=== PATIENT | female | born 1985 | race Caucasian/White ===

== ENCOUNTER 2017-04-12 12:52 | Emergency (ER) | payer BC, MEDICAID ==
[~2017-04-12] VITALS: Ht 170.2 cm; Wt 54.5 kg
[2017-04-12 13:13] LABS: GLUCOSE,POINT OF CARE 77 MG/DL (70-110)
[2017-04-12] MEDS ORDERED: SODIUM CHLORIDE 0.9% 1,000 ML IV ONE ×2 (13:15→16:15)
[2017-04-12 14:31] LABS: BASOPHILS % (AUTO) 0.8 % (0.0-2.0); EOSINOPHILS % (AUTO) 0.7 % (1.0-6.0); HEMATOCRIT 42.1 % (36-46); HEMOGLOBIN 14.5 g/dL (12.0-16.0); LYMPHOCYTES # (AUTO) 2.2 K/uL (1.0-4.8); LYMPHOCYTES % (AUTO) 36.5 % (22.0-44.0); MEAN CORPUSCULAR HEMOGLOBIN 33.3 pg (26.0-34.0); MEAN CORPUSCULAR HGB CONC 34.4 G/dL (31.0-37.0); MEAN CORPUSCULAR VOLUME 97 fL (80-100); MONOCYTES # (AUTO) 0.3 K/uL (0.1-1.0); MONOCYTES % (AUTO) 4.9 % (2.0-9.0); NEUTROPHILS # (AUTO) 3.5 K/uL (1.8-7.7); NEUTROPHILS % (AUTO) 57.1 % (40.0-70.0); PLATELET COUNT (AUTO) 289 K/uL (150-450); RED BLOOD CELL COUNT(AUTO) 4.35 MIL/uL (4.00-5.20); RED CELL DISTRIBUTION WIDTH 12.7 % (11.5-14.5); WHITE BLOOD COUNT (AUTO) 6.1 K/uL (4.5-11.0)
[2017-04-12 14:40] LABS: ANION GAP 10 mmol/L (8-16); CALCIUM, TOTAL 8.6 mg/dL (8.8-10.5); CARBON DIOXIDE 27 mmol/L (22-29); CHLORIDE 110 mmol/L (98-107); CREATININE 0.54 mg/dL (0.60-1.30); GLOMERULAR FILTR. RATE CALC > 60 mL/min (>60); POTASSIUM 4.4 mmol/L (3.5-5.1); SODIUM SERUM 147 mmol/L (136-145); UREA NITROGEN, BLOOD 8 mg/dL (7-18)
[2017-04-12 14:46] LABS: ALANINE AMINOTRANSFERASE 30 U/L (12-78); ALBUMIN 3.7 g/dL (3.4-5.0); ASPARTATE AMINOTRANSFERASE 28 U/L (15-37); BILIRUBIN,TOTAL 0.2 mg/dL (0.1-1.0); TOTAL PROTEIN, SERUM 7.1 g/dL (6.4-8.2)
[2017-04-12 14:48] LABS: ACETAMINOPHEN < 2 mcg/mL (10-30)
[2017-04-12 14:49] LABS: SALICYLATE < 2.8 mg/dL (2.8-20.0)
[2017-04-12 18:15] VITALS: BP 113/75
[2017-04-12 18:23] LABS: APPEARANCE,URINE CLEAR (CLEAR); GLUCOSE, URINE (UA) NEGATIVE (NEGATIVE); KETONES,URINE NEGATIVE (NEGATIVE); LEUKOCYTE ESTERASE ,URINE NEGATIVE (NEGATIVE); OCCULT BLOOD,URINE NEGATIVE (NEGATIVE); PROTEIN,URINE NEGATIVE (NEGATIVE)
[2017-04-12 18:46] LABS: ADD UA MICROSCOPIC NO
== END 2017-04-12 18:53 | disposition home or self-care (01) ==
LOC: EMS 12:55
DX: F10.129 Alcohol abuse with intoxication, unspecified (principal)
CPT/HCPCS: 36415; 80053; 80307; 81003; 82962; 84703; 85025; 96360; 96361; 99285; G0480; J7030; G0481

== ENCOUNTER 2017-04-27 19:28 | Inpatient (IN) | payer BC, MEDICAID ==
[~2017-04-27] VITALS: Ht 167.6 cm; Wt 52.2 kg
[2017-04-27 20:04] LABS: BASOPHILS # (AUTO) 0.03 K/uL (0.00-0.20); BASOPHILS % (AUTO) 0.4 % (0.0-2.0); HEMATOCRIT 40.7 % (36-46); HEMOGLOBIN 14.1 g/dL (12.0-16.0); LYMPHOCYTES # (AUTO) 1.7 K/uL (1.0-4.8); LYMPHOCYTES % (AUTO) 18.4 % (22.0-44.0); MEAN CORPUSCULAR HEMOGLOBIN 33.3 pg (26.0-34.0); MEAN CORPUSCULAR HGB CONC 34.6 G/dL (31.0-37.0); MEAN CORPUSCULAR VOLUME 96 fL (80-100); MONOCYTES # (AUTO) 0.7 K/uL (0.1-1.0); MONOCYTES % (AUTO) 7.9 % (2.0-9.0); NEUTROPHILS # (AUTO) 6.7 K/uL (1.8-7.7); NEUTROPHILS % (AUTO) 72.2 % (40.0-70.0); PLATELET COUNT (AUTO) 324 K/uL (150-450); RED BLOOD CELL COUNT(AUTO) 4.23 MIL/uL (4.00-5.20); RED CELL DISTRIBUTION WIDTH 12.4 % (11.5-14.5); WHITE BLOOD COUNT (AUTO) 9.3 K/uL (4.5-11.0)
[2017-04-27 20:26] LABS: ANION GAP 13 mmol/L (8-16); CALCIUM, TOTAL 8.9 mg/dL (8.8-10.5); CARBON DIOXIDE 25 mmol/L (22-29); CHLORIDE 98 mmol/L (98-107); CREATININE 0.86 mg/dL (0.60-1.30); GLOMERULAR FILTR. RATE CALC > 60 mL/min (>60); POTASSIUM 3.2 mmol/L (3.5-5.1); SODIUM SERUM 136 mmol/L (136-145); UREA NITROGEN, BLOOD 12 mg/dL (7-18)
[2017-04-27 20:33] LABS: ALANINE AMINOTRANSFERASE 30 U/L (12-78); ALBUMIN 4.6 g/dL (3.4-5.0); ASPARTATE AMINOTRANSFERASE 33 U/L (15-37); BILIRUBIN,TOTAL 0.7 mg/dL (0.1-1.0); TOTAL PROTEIN, SERUM 8.2 g/dL (6.4-8.2)
[2017-04-28] MEDS ORDERED: ZOLPIDEM TARTRATE 10 MG TABLET PO PRN (01:15)
[2017-04-28] MEDS ORDERED: HALOPERIDOL 5 MG TABLET PO PRN (01:15)
[2017-04-28] MEDS ORDERED: POTASSIUM CHLORIDE 20 MEQ ER TABLET PO ONE (11:00)
[2017-04-28] MEDS ORDERED: INFLUENZA VIRUS VACCINE QVS 2017-18 (3YR+)/PF 60 MCG/0.5 ML SYRINGE IM ONE (11:15)
[2017-04-28 11:28] VITALS: BP 111/62
[2017-04-28 11:32] VITALS: BP 111/62
[2017-04-28] MEDS: LORazepam 2 MG TABLET PO PRN (12:44)
[2017-04-28] MEDS ORDERED: ACETAMINOPHEN 325 MG TABLET PO PRN (14:45)
[2017-04-28] MEDS ORDERED: IBUPROFEN 400 MG TABLET PO PRN (14:45)
[2017-04-29 00:01] VITALS: BP 110/64
[2017-04-29 00:04] VITALS: BP 110/64
[2017-04-29] MEDS: RisperiDONE 2 MG TABLET PO SCH ×2 (08:24→16:07)
[2017-04-29 08:25] VITALS: BP 111/70
[2017-04-29 08:30] VITALS: BP 111/70
[2017-04-29 09:00] LABS: CHOL/HDL RATIO 1.5 (3.9-5.7); POTASSIUM 4.5 mmol/L (3.5-5.1)
[2017-04-29 16:06] VITALS: BP 122/80
[2017-04-29 16:07] VITALS: BP 122/80
[2017-04-30 00:59] VITALS: BP 108/62
[2017-04-30 01:00] VITALS: BP 108/62
[2017-04-30 08:40] VITALS: BP 104/60
[2017-04-30 08:45] VITALS: BP 104/60
[2017-04-30] MEDS: RisperiDONE 2 MG TABLET PO SCH ×2 (09:31→16:09)
[2017-04-30 16:00] VITALS: BP 102/60
[2017-04-30 16:32] VITALS: BP 102/60
[2017-05-01 00:14] VITALS: BP 110/64
[2017-05-01] MEDS: RisperiDONE 2 MG TABLET PO SCH ×2 (08:58→16:05)
[2017-05-01 10:56] VITALS: BP 102/62
[2017-05-01 16:38] VITALS: BP 118/69
[2017-05-02 00:52] VITALS: BP_SYST 100; BP_DIAS 60; BP_DIAS 66
[2017-05-02] MEDS: RisperiDONE 2 MG TABLET PO SCH ×2 (08:49→16:14)
[2017-05-02 09:45] VITALS: BP 107/63
[2017-05-02 13:59] VITALS: BP 112/72
[2017-05-02 16:12] VITALS: BP 106/64
[2017-05-02 16:14] VITALS: BP 106/64
[2017-05-03 00:01] VITALS: BP 101/60
[2017-05-03 08:14] VITALS: BP 109/66
[2017-05-03] MEDS: RisperiDONE 2 MG TABLET PO SCH ×2 (08:33→16:16)
[2017-05-03 10:11] VITALS: BP 109/66
[2017-05-03] MEDS: NICOTINE 7 MG/24 HOUR PATCH TD SCH (13:31)
[2017-05-03 16:36] VITALS: BP 120/73
[2017-05-03 18:23] VITALS: BP 108/60
[2017-05-03] MEDS: LORazepam 2 MG TABLET PO PRN (20:59)
[2017-05-04 00:34] VITALS: BP 102/60
[2017-05-04 09:00] VITALS: BP 118/67
[2017-05-04] MEDS: NICOTINE 7 MG/24 HOUR PATCH TD SCH (09:25)
[2017-05-04] MEDS: RisperiDONE 2 MG TABLET PO SCH ×2 (09:26→16:25)
[2017-05-04] MEDS: LORazepam 2 MG TABLET PO PRN (16:26)
[2017-05-04 16:28] VITALS: BP 120/83
[2017-05-05 00:05] VITALS: BP 105/70
[2017-05-05 04:34] VITALS: BP 125/76
[2017-05-05] MEDS: LORazepam 2 MG TABLET PO PRN ×2 (04:35→16:00)
[2017-05-05] MEDS: NICOTINE 7 MG/24 HOUR PATCH TD SCH (08:46)
[2017-05-05] MEDS: RisperiDONE 2 MG TABLET PO SCH ×2 (08:46→16:00)
[2017-05-05 09:00] VITALS: BP 120/69
[2017-05-05] MEDS ORDERED: RISP2 PO (14:34)
== END 2017-05-05 16:30 | disposition home or self-care (01) | DRG 750 ==
LOC: EMS 19:32 → B2S 04-28 08:30
PROVIDERS: ADMIT Psychiatry & Neurology Psychiatry; ATTEND Psychiatry & Neurology Psychiatry
PROC: 3E0234Z Introduction of Serum, Toxoid and Vaccine into Muscle, Percutaneous Approach (ICD-10-PCS; principal; 2017-04-29)
DX: F20.0 Paranoid schizophrenia (principal); F15.10 Other stimulant abuse, uncomplicated; F10.10 Alcohol abuse, uncomplicated; E87.6 Hypokalemia; R41.0 Disorientation, unspecified; R45.86 Emotional lability; Z23 Encounter for immunization; Z71.41 Alcohol abuse counseling and surveillance of alcoholic; Z71.51 Drug abuse counseling and surveillance of drug abuser
CPT/HCPCS: 84132; 90471; 99285; G0480

== ENCOUNTER 2017-06-20 16:54 | Emergency (ER) | payer MEDICAID ==
[~2017-06-20] VITALS: Ht 170.2 cm; Wt 59.1 kg
[~2017-06-20 16:54] MED LIST: RISP2 PO
[2017-06-20 20:22] VITALS: BP 127/78
== END 2017-06-20 20:30 | disposition home or self-care (01) ==
LOC: EMS 16:55
DX: F20.9 Schizophrenia, unspecified (principal); F15.90 Other stimulant use, unspecified, uncomplicated
CPT/HCPCS: 99284

== ENCOUNTER 2019-10-24 16:50 | Inpatient (IN) | payer MEDICAID ==
[~2019-10-24] VITALS: Ht 170.2 cm; Wt 69.0 kg
[2019-10-24 17:20] LABS: BASOPHILS % (AUTO) 0.8 % (0.0-2.0); EOSINOPHILS % (AUTO) 0.4 % (1.0-6.0); HEMATOCRIT 38.9 % (36-46); HEMOGLOBIN 12.8 g/dL (12.0-16.0); LYMPHOCYTES # (AUTO) 1.9 K/uL (1.0-4.8); LYMPHOCYTES % (AUTO) 15.9 % (22.0-44.0); MEAN CORPUSCULAR HEMOGLOBIN 30.8 pg (26.0-34.0); MEAN CORPUSCULAR VOLUME 93 fL (80-100); MONOCYTES # (AUTO) 1.2 K/uL (0.1-1.0); MONOCYTES % (AUTO) 10.3 % (2.0-9.0); NEUTROPHILS # (AUTO) 8.5 K/uL (1.8-7.7); NEUTROPHILS % (AUTO) 72.6 % (40.0-70.0); PLATELET COUNT (AUTO) 257 K/uL (150-450); RED BLOOD CELL COUNT(AUTO) 4.17 MIL/uL (4.00-5.20); RED CELL DISTRIBUTION WIDTH 13.4 % (11.5-14.5)
[2019-10-24 17:27] LABS: ANION GAP 10 mmol/L (8-16); CARBON DIOXIDE 26 mmol/L (22-29); CHLORIDE 101 mmol/L (98-107); CREATININE 0.78 mg/dL (0.60-1.30); GLOMERULAR FILTR. RATE CALC > 60 mL/min (>60); GLUCOSE,RANDOM 85 mg/dL (70-110); POTASSIUM 4.2 mmol/L (3.5-5.1); SODIUM SERUM 137 mmol/L (136-145); UREA NITROGEN, BLOOD 14 mg/dL (7-18)
[2019-10-24 17:33] LABS: ALANINE AMINOTRANSFERASE 340 U/L (12-78); ALBUMIN 4.4 g/dL (3.4-5.0); ALKALINE PHOSPHATASE 125 U/L (46-116); ASPARTATE AMINOTRANSFERASE 127 U/L (15-37); BILIRUBIN,TOTAL 0.5 mg/dL (0.1-1.0); TOTAL PROTEIN, SERUM 7.6 g/dL (6.4-8.2)
[2019-10-24 18:14] LABS: AMPHET/METH SCREEN,URINE POSITIVE (NEGATIVE); BARBITURATE SCREEN, URINE NEGATIVE (NEGATIVE); BENZODIAZEPINES SCREEN,URINE NEGATIVE (NEGATIVE); CANNABINOID SCREEN,URINE NEGATIVE (NEGATIVE); COCAINE SCREEN,URINE NEGATIVE (NEGATIVE); METHADONE SCREEN, URINE NEGATIVE (NEGATIVE); OPIATE SCREEN,URINE NEGATIVE (NEGATIVE)
[2019-10-24 18:17] LABS: PHENCYCLIDINE SCREEN,URINE NEGATIVE (NEGATIVE)
[2019-10-24] MEDS ORDERED: LORazepam 2 MG TABLET PO ONE (18:30)
[2019-10-24] MEDS ORDERED: OLANZapine 5 MG TABLET PO ONE (18:30)
[2019-10-24] MEDS ORDERED: ZOLPIDEM TARTRATE 10 MG TABLET PO PRN (19:00)
[2019-10-24] MEDS ORDERED: HALOPERIDOL 5 MG TABLET PO PRN (19:00)
[2019-10-24] MEDS ORDERED: LORazepam 2 MG TABLET PO PRN (19:00)
[2019-10-24] MEDS: OLANZapine 7.5 MG TABLET PO SCH (20:33)
[2019-10-24 21:34] VITALS: BP 101/68
[2019-10-24] MEDS ORDERED: PNEUMOCOCCAL VACCINE POLYVALENT 0.5 ML VIAL [PPSV23] IM ONE (22:15)
[2019-10-25 07:28] LABS: CHOL/HDL RATIO 2.2 (3.9-5.7)
[2019-10-25 08:00] VITALS: BP 117/74
[2019-10-25] MEDS: NICOTINE 21 MG/24 HOUR PATCH TD SCH (08:43)
[2019-10-25 17:00] VITALS: BP 104/63
[2019-10-25] MEDS ORDERED: IBUPROFEN 600 MG TABLET PO PRN (19:15)
[2019-10-25] MEDS ORDERED: BENZOCAINE/MENTHOL LOZENGE MM PRN (19:15)
[2019-10-25] MEDS ORDERED: CloNIDine HCL 0.1 MG TABLET PO PRN (19:15)
[2019-10-25] MEDS ORDERED: ALBUTEROL SULFATE HFA 90 MCG/PUFF 8 GM INHALER IH PRN (19:15)
[2019-10-25] MEDS ORDERED: PETROLATUM,WHITE 28 GM JELLY TP PRN (19:15)
[2019-10-25] MEDS ORDERED: ACETAMINOPHEN 325 MG TABLET PO PRN (19:15)
[2019-10-25] MEDS ORDERED: MAGNESIUM HYDROXIDE SUSPENSION 30 ML UDCUP PO PRN (19:15)
[2019-10-25] MEDS ORDERED: DOCUSATE SODIUM 100 MG CAPSULE PO PRN (19:15)
[2019-10-25] MEDS ORDERED: BACITRACIN 28.4 GM OINTMENT TP PRN (19:15)
[2019-10-25] MEDS ORDERED: ONDANSETRON HCL 4 MG TABLET PO PRN (19:15)
[2019-10-25] MEDS ORDERED: MAG HYDROX/AL HYDROX/SIMETH ES 30 ML SUSPENSION UDCUP PO PRN (19:15)
[2019-10-25] MEDS ORDERED: OMEPRAZOLE 20 MG CAPSULE PO PRN (19:15)
[2019-10-25] MEDS ORDERED: LOPERAMIDE HCL 2 MG CAPSULE PO PRN (19:15)
[2019-10-25] MEDS: OLANZapine 7.5 MG TABLET PO SCH (20:40)
[2019-10-26 05:54] VITALS: BP 117/71
[2019-10-26] MEDS: NICOTINE 21 MG/24 HOUR PATCH TD SCH (08:12)
[2019-10-26 09:33] VITALS: BP 111/78
[2019-10-26 18:34] VITALS: BP 103/61
[2019-10-26] MEDS: OLANZapine 7.5 MG TABLET PO SCH (20:34)
[2019-10-27 04:33] VITALS: BP 107/66
[2019-10-27] MEDS: NICOTINE 21 MG/24 HOUR PATCH TD SCH (09:07)
[2019-10-27 10:08] VITALS: BP 103/62
[2019-10-27 17:16] VITALS: BP 110/69
[2019-10-27] MEDS: OLANZapine 7.5 MG TABLET PO SCH (20:26)
[2019-10-28 09:00] VITALS: BP 94/71
[2019-10-28] MEDS: NICOTINE 21 MG/24 HOUR PATCH TD SCH (09:51)
[2019-10-28 18:48] VITALS: BP 115/69
[2019-10-28] MEDS: OLANZapine 7.5 MG TABLET PO SCH (20:06)
[2019-10-29 08:49] VITALS: BP 116/71
[2019-10-29] MEDS: NICOTINE 21 MG/24 HOUR PATCH TD SCH (08:58)
[2019-10-29] MEDS ORDERED: OLAN15TA2 PO (13:22)
== END 2019-10-29 16:15 | disposition home or self-care (01) | DRG 885 ==
LOC: EMS 16:50 → 3EI 20:00
PROVIDERS: ADMIT Psychiatry & Neurology Psychiatry; ATTEND Psychiatry & Neurology Psychiatry
DX: F20.0 Paranoid schizophrenia (principal); I10 Essential (primary) hypertension; E78.5 Hyperlipidemia, unspecified; F15.90 Other stimulant use, unspecified, uncomplicated; R74.0 Nonspecific elevation of levels of transaminase and lactic acid dehydrogenase [LDH]; Z59.0 Homelessness; Z87.891 Personal history of nicotine dependence
CPT/HCPCS: 80074; G0480

== ENCOUNTER 2020-01-12 15:39 | Inpatient (IN) | payer MEDICAID ==
[~2020-01-12] VITALS: Ht 162.6 cm; Wt 57.9 kg
[~2020-01-12 15:39] MED LIST changes: +OLAN15TA2 PO; -RISP2 PO
[2020-01-12] MEDS ORDERED: ZOLPIDEM TARTRATE 10 MG TABLET PO PRN (18:00)
[2020-01-12] MEDS ORDERED: HALOPERIDOL 5 MG TABLET PO PRN (18:00)
[2020-01-12] MEDS ORDERED: LORazepam 2 MG TABLET PO PRN (18:00)
[2020-01-12 18:14] LABS: BASOPHILS % (AUTO) 0.5 % (0.0-2.0); EOSINOPHILS % (AUTO) 1.7 % (1.0-6.0); HEMATOCRIT 42.9 % (36-46); HEMOGLOBIN 14.4 g/dL (12.0-16.0); LYMPHOCYTES # (AUTO) 1.9 K/uL (1.0-4.8); LYMPHOCYTES % (AUTO) 29.2 % (22.0-44.0); MEAN CORPUSCULAR HEMOGLOBIN 31.3 pg (26.0-34.0); MEAN CORPUSCULAR HGB CONC 33.6 G/dL (31.0-37.0); MEAN CORPUSCULAR VOLUME 93 fL (80-100); MONOCYTES # (AUTO) 0.5 K/uL (0.1-1.0); MONOCYTES % (AUTO) 7.9 % (2.0-9.0); NEUTROPHILS # (AUTO) 3.9 K/uL (1.8-7.7); NEUTROPHILS % (AUTO) 60.7 % (40.0-70.0); PLATELET COUNT (AUTO) 248 K/uL (150-450)
[2020-01-12 18:17] LABS: ANION GAP 8 mmol/L (8-16); CALCIUM, TOTAL 8.7 mg/dL (8.8-10.5); CARBON DIOXIDE 29 mmol/L (22-29); CHLORIDE 106 mmol/L (98-107); CREATININE 0.64 mg/dL (0.60-1.30); GLOMERULAR FILTR. RATE CALC > 60 mL/min (>60); GLUCOSE,RANDOM 88 mg/dL (70-110); POTASSIUM 4.2 mmol/L (3.5-5.1); SODIUM SERUM 143 mmol/L (136-145); UREA NITROGEN, BLOOD 17 mg/dL (7-18)
[2020-01-12 18:23] LABS: ALANINE AMINOTRANSFERASE 33 U/L (12-78); ALBUMIN 3.8 g/dL (3.4-5.0); ALKALINE PHOSPHATASE 81 U/L (46-116); ASPARTATE AMINOTRANSFERASE 20 U/L (15-37); BILIRUBIN,TOTAL 0.2 mg/dL (0.1-1.0)
[2020-01-13 08:50] LABS: AMPHET/METH SCREEN,URINE POSITIVE (NEGATIVE); BARBITURATE SCREEN, URINE NEGATIVE (NEGATIVE); BENZODIAZEPINES SCREEN,URINE NEGATIVE (NEGATIVE); CANNABINOID SCREEN,URINE NEGATIVE (NEGATIVE); COCAINE SCREEN,URINE NEGATIVE (NEGATIVE); METHADONE SCREEN, URINE NEGATIVE (NEGATIVE); OPIATE SCREEN,URINE NEGATIVE (NEGATIVE)
[2020-01-13 08:51] LABS: PHENCYCLIDINE SCREEN,URINE NEGATIVE (NEGATIVE)
[2020-01-13 14:10] VITALS: BP 109/64
[2020-01-13 16:20] VITALS: BP 117/59
[2020-01-13] MEDS ORDERED: ONDANSETRON HCL 4 MG TABLET PO PRN (22:30)
[2020-01-13] MEDS ORDERED: PETROLATUM,WHITE 28 GM JELLY TP PRN (22:30)
[2020-01-13] MEDS ORDERED: MAGNESIUM HYDROXIDE SUSPENSION 30 ML UDCUP PO PRN (22:30)
[2020-01-13] MEDS ORDERED: GuaiFENesin/D-METHORPHAN [SUGAR-FREE] 200-20MG/10 ML SYRUP UDCUP PO PRN (22:30)
[2020-01-13] MEDS ORDERED: NICOTINE 14 MG/24 HOUR PATCH TD PRN (22:30)
[2020-01-13] MEDS ORDERED: IBUPROFEN 400 MG TABLET PO PRN (22:30)
[2020-01-13] MEDS ORDERED: ALBUTEROL SULFATE HFA 90 MCG/PUFF 8 GM INHALER IH PRN (22:30)
[2020-01-13] MEDS ORDERED: DOCUSATE SODIUM 100 MG CAPSULE PO PRN (22:30)
[2020-01-13] MEDS ORDERED: ACETAMINOPHEN 325 MG TABLET PO PRN (22:30)
[2020-01-13] MEDS ORDERED: LOPERAMIDE HCL 2 MG CAPSULE PO PRN (22:30)
[2020-01-13] MEDS ORDERED: CloNIDine HCL 0.1 MG TABLET PO PRN (22:30)
[2020-01-13] MEDS ORDERED: MAG HYDROX/AL HYDROX/SIMETH ES 30 ML SUSPENSION UDCUP PO PRN (22:30)
[2020-01-14 00:22] VITALS: BP 121/78
[2020-01-14 08:17] VITALS: BP 101/57
[2020-01-14 16:53] VITALS: BP 110/57
[2020-01-14] MEDS: OLANZapine 7.5 MG TABLET PO SCH (20:21)
[2020-01-15 06:10] VITALS: BP 110/68
[2020-01-15 08:18] VITALS: BP 101/60
[2020-01-15 16:12] VITALS: BP 106/63
[2020-01-15] MEDS: OLANZapine 7.5 MG TABLET PO SCH (20:47)
[2020-01-16 00:54] VITALS: BP 124/6
[2020-01-16 08:22] VITALS: BP 105/54
[2020-01-16 16:11] VITALS: BP 117/63
[2020-01-16] MEDS: OLANZapine 7.5 MG TABLET PO SCH (20:36)
[2020-01-17 00:15] VITALS: BP 115/68
[2020-01-17 08:18] VITALS: BP 108/52
[2020-01-17 16:12] VITALS: BP 112/57
[2020-01-17] MEDS: OLANZapine 7.5 MG TABLET PO SCH (20:30)
[2020-01-18 06:17] VITALS: BP 128/79
[2020-01-18 09:45] VITALS: BP 100/62
[2020-01-18 16:45] VITALS: BP 111/61
[2020-01-18] MEDS: OLANZapine 7.5 MG TABLET PO SCH (21:13)
[2020-01-19 02:05] VITALS: BP 105/62
[2020-01-19 09:41] VITALS: BP 107/62
[2020-01-19 16:00] VITALS: BP 100/70
[2020-01-19] MEDS: OLANZapine 7.5 MG TABLET PO SCH (20:31)
[2020-01-20 01:12] VITALS: BP 100/63
[2020-01-20 08:42] VITALS: BP 118/80
[2020-01-20 16:33] VITALS: BP 104/60
[2020-01-20] MEDS: OLANZapine 7.5 MG TABLET PO SCH (20:14)
[2020-01-21 00:36] VITALS: BP 112/63
[2020-01-21 08:19] VITALS: BP 105/53
[2020-01-21 16:12] VITALS: BP 121/69
[2020-01-21] MEDS: OLANZapine 7.5 MG TABLET PO SCH (20:03)
[2020-01-22 05:36] VITALS: BP 118/70
[2020-01-22 08:30] VITALS: BP 112/65
[2020-01-22 16:13] VITALS: BP 117/67
[2020-01-22] MEDS: OLANZapine 7.5 MG TABLET PO SCH (20:09)
[2020-01-23 00:16] VITALS: BP 112/70
[2020-01-23 08:12] VITALS: BP 100/59
[2020-01-23 16:00] VITALS: BP 104/66
[2020-01-23] MEDS: OLANZapine 7.5 MG TABLET PO SCH (20:06)
[2020-01-24 00:36] VITALS: BP 112/70
[2020-01-24 09:17] VITALS: BP 108/57
[2020-01-24] MEDS ORDERED: OLAN5TAB2 PO (14:10)
== END 2020-01-24 15:10 | disposition home or self-care (01) | DRG 885 ==
LOC: EMS 15:42 → B2S 01-13 12:12
DX: F20.0 Paranoid schizophrenia (principal); F15.10 Other stimulant abuse, uncomplicated; F10.10 Alcohol abuse, uncomplicated; Z91.14 Patient's other noncompliance with medication regimen; Z59.0 Homelessness; Z87.891 Personal history of nicotine dependence; F12.90 Cannabis use, unspecified, uncomplicated; F41.9 Anxiety disorder, unspecified
CPT/HCPCS: G0480